=== PATIENT | male | born 1960 | race Caucasian/White ===

== ENCOUNTER → 2016-07-30 | Outpatient (CLI) | payer BC ==
[~2016-07-30] MED LIST: ACID REFLUX MED; AMLODIPINE BENAZEPRI; AMLODIPINE-BEN1 EAC1 PO; AMLODIPINE-BEN1 EACH PO; ANTI-ANXIETY; ATIVAN PO; AZOR 5-20 MG T1 EACH PO; BENTYL20 M1 PO; CIPRO PO; DEXILANT60 MG PO; FLAGYL PO; HYDROCODON-ACE1 EAC7 PO; KEFLEX500 MG PO; NORCO1 TAB 10/3 PO; NYSTATIN5 ML PO; OMEPRAZOLE40 M1 PO; ONDANSETRON ODT4 MG PO; PAROXETINE HCL20 M1 PO; PAROXETINE HCL20 MG PO; PERCOCET5/325 PO; PRILOSEC PO; REGLAN10 MG PO; TOPROL XL 50 MG50 MG PO; TOPROL XL PO; TOPROL XL50 MG PO; TRIAMCINOLONE A15 G2 TOP; XANAX0.5 MG PO; [UNRECOGNIZED DRUG - OTHER] PO
--- NOTE | ~2016-07-30 | CT57 ---
[facility] A Service of [facility] & [facility] / [facility] RADIOLOGY TEXT RESULTS PATIENT: JESSICA STANLEY LOCATION: [facility]AT : 62 UNIT #: [id number] AGE: [address]: Rigo Lao MD SEX: M ORDER DR: [id number] [facility] [address] [place], [place] [address] [id number] O MR#: [id number] Acc #: [id number] NAME: JESSICA STANLEY. : 1960 SEX: M STUDY DATE/TIME: 07/30/2016 8:45 UNIT: [facility] ROOM: STUDY DESCRIPTION: CT Chest Wo Cont Attending Physician: Rigo Lao Jr., M.D. Referring Physician: Rigo Lao Jr., M.D. Ordering Physician: Rigo Lao Jr., M.D. Primary Care Physician: Rigo Lao Jr., M.D. MEDICAL IMAGING REPORT This report is preliminary unless electronic signature is present EXAM CT chest without contrast. DATE 07/30/2016 HISTORY Physician's order states followup pulmonary nodules. Patient states no current complaints. Previous history of hypertension, stroke/TIA. COMPARISON CT chest 02/17/2010, CT abdomen and pelvis lung windows 04/18/2016. There is no more recent CT chest at this institution for comparison. TECHNIQUE 2 mm noncontrast axial images through the chest. Sagittal and coronal reformed images were obtained. This CT exam was performed with one or more of the following radiation dose reduction techniques: Automatic exposure control, adjustment of mA and/or kV according to patient size, and iterative reconstruction. FINDINGS An abnormally enlarged lymph node or nodule is seen in the left hilum measuring 2.0 x 1.3 cm. It corresponds to the incompletely imaged left hilar node on 04/18/2016 and is not thought to be significantly changed. This is a new finding since 02/17/2010, and only a small, nonpathologic node is seen in the same vicinity on previous CT abdomen and pelvis from 09/12/2015 and 01/04/2015. An enlarged right lower paratracheal node measures 1.0 x 1.8 cm, a new finding since 02/17/2010. Indeterminate node in the prevascular region of the mediastinum on the left measures 1.5 x 0.6 cm. An index AP window node measures 1.3 x 0.9 cm, which also appears new or more prominent than on the 2010 examination. [facility] A Service of [facility] RADIOLOGY TEXT RESULTS PATIENT: JESSICA STANLEY LOCATION: [facility] : 62 UNIT #: [id number] AGE: [address]: Rigo Lao MD SEX: M ORDER DR: Benign calcified lymph nodes are seen within the right hilum and within the right lower lobe of the lung. There is some linear scarring in the right lower lobe adjacent to the calcified granuloma which is unchanged from 2010. No focal suspicious noncalcified pulmonary nodule is identified. No acute airspace disease is appreciated. Benign calcified granuloma in the subpleural right upper lobe is also stable. There is no pericardial effusion. No pleural effusion. Surgical changes are present within the cervical spine. Mild ectasia of the ascending and descending thoracic aorta without kira aneurysm. Cholecystectomy changes are present. The liver is mildly steatotic. Diverticular changes are seen within the imaged colon. The remainder of the included upper abdominal organs have a normal noncontrast appearance. No suspicious osteolytic or osteoblastic lesions are evident. IMPRESSION 1. Enlarged mediastinal and left hilar lymph nodes as described in the report. These findings appear new when compared to the 02/17/2010 CT chest. The left infrahilar node documented on the more recent CT abdomen from 04/18/2016 appears stable. Both benign and malignant etiologies remain in the differential. Consider head CT for further evaluation. Of note, these nodes are not amenable to CT-guided percutaneous biopsy. 2. No focal suspicious noncalcified pulmonary nodules are identified. 3. Benign calcified granulomatous changes are present within the right hilum and right lung. 4. Upper abdominal organs are notable for colonic diverticulosis, hepatic steatosis, cholecystectomy. 5. Surgical changes of the cervical spine. Dictated by... Leia Arnold M.D. THIS IS AN ELECTRONICALLY VERIFIED REPORT Leia Arnold M.D. at 07/31/2016 7:08 AM KERRY/topher TD: 07/30/2016 13:43 JOB #: [id number] MEDICAL IMAGING REPORT Page 1 of 1 COPY
== END | disposition home or self-care (01) ==
LOC: CCAT 08:16
DX: R91.1 Solitary pulmonary nodule (principal); R59.0 Localized enlarged lymph nodes; K57.30 Diverticulosis of large intestine without perforation or abscess without bleeding; K76.0 Fatty (change of) liver, not elsewhere classified; Z90.49 Acquired absence of other specified parts of digestive tract; Z98.890 Other specified postprocedural states
CPT/HCPCS: 71250

== ENCOUNTER → 2016-10-17 | Day surgery (SDC) | payer BC ==
--- NOTE | ~2016-10-17 | OR ---
Unit #: [id number] #: [id number] Patient: JESSICA STANLEY [id number] [address] [address] [id number] O MR#: [id number] NAME: JESSICA STANLEY. ROOM: Date of Procedure: 10/17/2016 Admission Date: 10/17/2016 Surgeon: Satinder Swenson M.D. : 1960 Attending Physician: Satinder Swenson M.D. Primary Care Physician: Rigo Lao Jr., M.D. OPERATIVE REPORT PROCEDURE PERFORMED Esophagogastroduodenoscopy with balloon dilatation. INDICATIONS FOR PROCEDURE The patient with recurrent dysphagia, history of esophageal stricture in the past that has been dilated multiple times. MEDICATIONS Monitored anesthesia. POSTOPERATIVE FINDINGS 1. Distal esophagus shows stricturing and scarring. No esophagitis was seen. Actually comparing it to the last evaluation, this was much improved. Dilated was carried out to 19 mm with a balloon successfully. 2. Normal stomach. 3. Normal duodenum and distal duodenum. PLAN Continue PPI therapy and reflux precautions. DESCRIPTION OF PROCEDURE The patient was explained of the procedure, risks, and benefits along with risks and benefits of anesthesia. He was brought to the endoscopy room. Propofol anesthesia was given. Bite block was placed. The scope was passed down the mouth into the esophagus, stomach, duodenum, and distal duodenum. Findings as described. Dilation was carried out to 19 mm with balloon. Gently, the scope was pulled out. He tolerated it well. No major complications were seen. Dictated by... Tamera Vazquez/immanuel TD: 10/18/2016 13:21 JOB #: [id number] Unit #: [id number] #: [id number] Patient: JESSICA STANLEY OPERATIVE REPORT Page 1 of 1 X Satinder Swenson MD X PROCEDURE OPERATIVE NOTE
== END | disposition home or self-care (01) ==
LOC: COPS 07:26
DX: K22.2 Esophageal obstruction (principal); K21.9 Gastro-esophageal reflux disease without esophagitis; I11.9 Hypertensive heart disease without heart failure; Z86.73 Personal history of transient ischemic attack (TIA), and cerebral infarction without residual deficits; Z88.0 Allergy status to penicillin; Z79.899 Other long term (current) drug therapy; Z90.49 Acquired absence of other specified parts of digestive tract; Z98.52 Vasectomy status; Z98.1 Arthrodesis status; Z98.890 Other specified postprocedural states